=== PATIENT | female | born 1980 | race Caucasian/White ===

== ENCOUNTER 2017-01-10 08:00 | Outpatient (CLI) | payer BC, MEDICAID | END 2017-01-10 23:59 | DX: J45.909 Unspecified asthma, uncomplicated (principal); I10 Essential (primary) hypertension; J01.90 Acute sinusitis, unspecified ==

== ENCOUNTER 2021-12-12 14:27 | Outpatient (CLI) | payer MEDICAID ==
[2021-12-12 15:15] VITALS: BP 132/73
--- NOTE | 2021-12-12 15:15 | SLEEP CARE CONSULTATION ---
Information from patient questionnaire entered by Fatemeh Bishop MA. I have reviewed and concur with the information entered by Fatemeh Bishop MA. This document represents the service I personally performed and the decisions made by , Krysta Moscoso ARNP. 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 Usual bedtime: 1 OR 2 AM, depends on work shift Time it takes to fall asleep: DEPENDS; may be hours Snores at night: Yes Observed to quit breathing while asleep: No Number of times waking at night: 2-8 Reasons for waking at night: reports: Choking, Snoring, Gasping for air, Bathroom Toss, Turn, or Twitch while sleeping: Yes Recalls having dreams: Yes Usually gets out of bed at: 0800 Feels refreshed in the morning: No Morning headache: Yes (4 days a week; last 2-3 hrs in morning) Sleepy or fatigued during the day: Yes (she can fall asleep if get quiet) Ever fallen asleep while driving: Yes (drowsy driving; gaps in memory while driving; no accidents) Takes day naps: Yes (daily when she is off of work; sleeps for 20 mins to 1-2 hrs) Dreams during day naps: Yes Prior sleep studies: No Additional HPI information: I had the pleasure of seeing BAIRON SZYMANSKI today regarding the possibility of her having a sleep disorder. Her current complaints are insomnia, excessive daytime sleepiness, fatigue, snoring, unrefreshed sleep and frequent night awakenings. She was in the ICU a few days in October and they recommended that she gets a sleep study. She states she can sleep for long time and not feel rested. She will also wake up frequently when she is sleeping. She has dreams where she is drowning or falling in the air, cannot breathe in the dream and she will wake up gasping for air. Her mother has told her she snores at night. She has woken up herself up snoring. She was seen in 2013 but was not able to get study done because her insurance would not cover the sleep study. - Parasomnia Symptoms Ever been unable to move upon waking from sleep: Yes (rare) Walks in sleep: No Talks in sleep: Yes Ever acted out dreams in sleep: No Ever felt weak in the knees when startled or emotional: Yes (fell to ground once but may have been blood pressure related) Bothered by creepy, crawly, restless sensations in legs: Yes (happens a lot, no specific time a day) Problems with memory or concentration: Yes (concentration is main issue, hard to focus) Subjective Initial [place] Sleepiness Scale score: 12 (12/04) Past Medical History Past Medical History: reports: Hypertension, Anxiety, Asthma, Depression, GERD, Other (possible heart issue??; hx of migraines) Social History The patient's occupation is a [employer]. Patient is Single and lives in [place]. Have you smoked in the past 12 months: No Cigarettes per day (20/pack): 10 Years of smokin Quit date: 2016 Smoking Pack Years: 10.0 Alcohol use: Yes Alcohol amount and frequency: 1 -2 YEARLY Caffeine use: Yes Caffeine amount and frequency: rarely ever now Family History Family history of sleep disordered breathing: No Family Hx Sleep Apnea: Mother: Snoring Allergies and Home Medications Known drug allergies: Yes (NICARDIPINE) Drug allergies reviewed: Yes Home medication list reviewed: Yes Allergy and home medication list: Medications: Labetalol Hydralazine Fluticasone Propionate Losartan Montelukast Furosemide Loratadine Acetaminophen, prn Diphenhydramine HCI, prn Famotidine, prn Review of Systems Weight gain over past 5 years: 5 Weight loss over past 5 years: 5 Cardiovascular: reports: high blood pressure, leg or foot swelling Respiratory: reports: shortness of breath, wheeze Gastrointestinal: reports: heartburn, difficulty swallowing Urinary: reports: incontinence Neurological: reports: headaches (hx of migraines). denies: head trauma Psychiatric: reports: anxiety, depression Ear/Nose/Throat: reports: nasal congestion, sinus problems, nose bleeds, dry mouth/throat, other (deviated septum and polyps surgically repaired 2017). denies: tonsillectomy, wisdom teeth removed Endocrine: reports: sluggishness, too hot or cold, excessive thirst Musculoskeletal: reports: joint pain, muscle pain or cramping Immunologic: reports: sneezing, itching, allergies to food or environment (seasonal allergies; cats; dogs; dust; trees; pollen; grasses) Physical Exam Vital signs obtained and entered by: KELSEY JOHNSTON Blood Pressure: 132/73 (PULSE 82, RESP 20, RIGHT, ) Heart Rate: 80 O2 Saturation: 96 (PAPER MASK) Height: 5 ft 3 in Weight: 239 lb (WITH CLOTHES) Body Mass Index: 42.3 BMI Classification: Morbidly Obese Neck circumference: 15 (INCHES) Mouth and throat: narrow oropharynx Soft palate: long Hard palate: normal Uvula: normal Uvula visualization: 25% Mallampati Class III Tongue: enlarged in size with teeth yin on lateral edges Tonsils: small Neck: normal w/o lymphadenopathy or thyromegaly Heart: regular rate and rhythm Lungs: clear bilaterally Impression and Plan 1. Suspected Obstructive Sleep Apnea-Hypopnea Syndrome, as suggested by a history of loud and irregular snoring, gasping or choking in sleep, morning headache, frequent awakening during the night, unrefreshed sleep, cognitive impairment, and excessive daytime sleepiness. Narrow oropharynx and obesity are common predisposing factors for obstructive sleep apnea-hypopnea syndrome. I recommend proceeding to polysomnography to confirm the diagnosis and to assess severity. If the patient has significant sleep disordered breathing, a manual CPAP titration study will also be performed to find the optimal treatment pressure. I informed the patient of what the sleep studies involve and after some discussion, obtained agreement to proceed. The pathophysiology of obstructive sleep apnea-hypopnea syndrome was discussed with the patient and health risks of cardiovascular and cerebrovascular disease if not treated. 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 Patient agreed to plan. * Schedule polysomnography +- manual CPAP titration study and return in 1-2 weeks after the study to discuss results. * Avoid long distance driving or driving when feeling sleepy. * Avoid alcohol, sedative and muscle relaxant around bedtime. * Attempt to lose weight. * Review instructions provided by trained office staff on how to prepare for the sleep study. * Return for follow-up after sleep study completed. Counseling Topics: Weight loss health impact Visit Type: In Office Time Spent with Patient (minutes): 34 Provider Statement: I spent 100% of the Face to Face Visit with the patient with greater than 50% spent counseling the patient and coordination of care.
== END 2021-12-12 14:28 | disposition home or self-care (01) ==
LOC: SC 14:27
PROVIDERS: ATTEND Nurse Practitioner Family
DX: G47.10 Hypersomnia, unspecified (principal); R53.83 Other fatigue; G47.8 Other sleep disorders; R51.9 Headache, unspecified; R06.83 Snoring; I10 Essential (primary) hypertension; E66.01 Morbid (severe) obesity due to excess calories; Z68.41 Body mass index [BMI] 40.0-44.9, adult; Z87.891 Personal history of nicotine dependence
CPT/HCPCS: 99203; 99212

== ENCOUNTER 2022-01-01 15:27 | Outpatient (CLI) | payer MEDICAID ==
[2022-01-01 15:50] VITALS: BP 134/75
--- NOTE | 2022-01-01 15:50 | SLEEP CARE CONSULTATION ---
Information from patient questionnaire entered by Fatemeh Bishop MA. I have reviewed and concur with the information entered by Fatemeh Bishop MA. This document represents the service I personally performed and the decisions made by , Krysta Moscoso ARNP. History of Present Illness Service Date and Time: 01/01/2022 1527 Initial [place] Sleepiness Scale score: 12 (12/04) Current [place] Sleepiness Scale score: 16 (12/2021) Additional HPI information: BAIRON SZYMANSKI returns for follow up and results of the recently performed home sleep study. The patient was informed of the following findings: Quality of study is poor because of near complete loss of airflow data. There was some evidence of OG based on oxyhemoglobin desaturation. Patient will need to repeat study because this HST is not interpretable. Patient counseled not drink alcohol less than 4 hours before bedtime as it can increase snoring and apnea. Patient was cautioned about risks of drowsy driving until sleepiness symptoms resolve. Sleep Study - Results Type of Sleep Study: Home sleep study (f/u home study, 12/19/2021 [facility], STUDY [place]. RETAKE HST,) Prior sleep studies: No Polysomnography/Home Sleep Study results: Physician Impression: The quality of the study is poor due to near complete loss of airflow data. The amount of useful data is inadequate. Please also see the tabulated and graphic data. 1. Some evidence of obstructive sleep apnea-hypopnea based on oxyhemoglobin desaturation. Recommendation: Due to the lack of airflow, this home sleep apnea test (HSAT) in uninterpretable. An inlaboratory polysomnography is recommended. Allergies and Home Medications Home medication list reviewed: Yes (prednisone - short term, stopping; budesonide, long-term) Review of Systems Review of systems same as previous: Yes (no changes) Physical Exam Vital signs obtained and entered by: KELSEY JOHNSTON Blood Pressure: 134/75 (PULSE 72, RESP 18, LEFT) Cuff size: wrist Heart Rate: 72 (BP X 2 ) O2 Saturation: 96 (PAPER MASK) Height: 5 ft 3 in Weight: 237 lb (WITH CLOTHES) Body Mass Index: 42.0 BMI Classification: Morbidly Obese Impression and Plan 1. Suspected Obstructive Sleep Apnea-Hypopnea Syndrome, as suggested by a history of loud and irregular snoring, gasping or choking in sleep, morning headache, frequent awakening during the night, unrefreshed sleep, cognitive impairment, and excessive daytime sleepiness. Patient medical history includes hypertension, anxiety, asthma, depression, gastric reflux and migraines. Her HST was not interpretable due to loss of airflow signal and insufficient time recording. I recommend proceeding to polysomnography to confirm the diagnosis and to assess severity. If the patient has significant sleep disordered breathing, a manual CPAP titration study will also be performed to find the optimal treatment pressure. I informed the patient of what the sleep studies involve and after some discussion, obtained agreement to proceed. The pathophysiology of obstructive sleep apnea-hypopnea syndrome was discussed with the patient and health risks of cardiovascular and cerebrovascular disease if not treated. Risks of drowsy driving discussed in detail and patient advised to avoid long distance driving and to well puller at the first sign of drowsiness. Patient agreed to plan. * Schedule polysomnography +- manual CPAP titration study and return in 1-2 weeks after the study to discuss results. * Avoid long distance driving or driving when feeling sleepy. * Avoid alcohol, sedative and muscle relaxant around bedtime. * Attempt to lose weight. * Review instructions provided by trained office staff on how to prepare for the sleep study. * Return for follow-up after sleep study completed. Counseling Topics: Weight loss health impact Visit Type: In Office Time Spent with Patient (minutes): 11 Provider Statement: I spent 100% of the Face to Face Visit with the patient with greater than 50% spent counseling the patient and coordination of care.
== END 2022-01-01 15:28 | disposition home or self-care (01) ==
LOC: SC 15:27
PROVIDERS: ATTEND Nurse Practitioner Family
DX: G47.8 Other sleep disorders (principal); R51.9 Headache, unspecified; R41.89 Other symptoms and signs involving cognitive functions and awareness; G47.10 Hypersomnia, unspecified; E66.01 Morbid (severe) obesity due to excess calories; Z68.41 Body mass index [BMI] 40.0-44.9, adult
CPT/HCPCS: 99212

== ENCOUNTER 2022-01-23 19:39 | Outpatient (CLI) | payer MEDICAID | END 2022-01-23 19:40 | disposition home or self-care (01) | LOC: SC 19:39 | PROVIDERS: ATTEND Nurse Practitioner Family | DX: G47.61 Periodic limb movement disorder (principal) | CPT/HCPCS: 95810 ==